=== PATIENT | male | born 1980 | race Caucasian/White ===

== ENCOUNTER 2021-04-25 02:17 | Emergency (ER) | payer SELFPAY ==
[2021-04-25 02:31] VITALS: BP 137/91; PULSE 94
--- NOTE | 2021-04-25 02:40 | EDM.PDOC ---
ED HPI GENERAL MEDICAL PROBLEM - General Chief Complaint: Lower Extremity Injury/Pain Stated Complaint: ANKLE INJURY Time Seen by Provider: 04/25/21 02:33 Source of Information: Reports: Patient, Family History Limitations: Reports: No Limitations - History of Present Illness INITIAL COMMENTS - FREE TEXT/NARRATIVE: 40-year-old male presents to the ED in the wee hours of the morning indicating that he is having constant throbbing pain in his left lower extremity. He states that he was standing on a hover board at about 2000 hrs. last night when his girlfriend called him. When he reached for his phone his left foot inverted and it felt like his mid lateral leg bowled upwards. This did cause him to fall to the ground. Since that time he is having pain in the distribution of the fibula and gastrocnemius muscle both medially and laterally as far down as the origin of the Achilles tendon. Also having pain lateral ankle. Feels that there is a lot of numbness and tingling in the distribution of the common peroneal nerve lateral left leg and foot. Pain is constant throbbing and pulsating and not allowing him to sleep. He denies injuries to any other parts of his body. Onset: Sudden Onset Date: 04/24/21 Onset Time: 20:00 Duration: Hour(s):, Constant, Getting Worse Location: Reports: Lower Extremity, Left (Distribution of the fibula mid lateral leg) Quality: Reports: Ache ( foot and ankle.), Throbbing, Other Severity: Moderate (Pulsating 8 out of 10) Improves with: Reports: Rest Worsens with: Reports: Other (Is with attempt to move. Unable to weight-bear) Context: Reports: Other (Ashly left foot inverted while standing on a hover board). Denies: Activity, Exercise, Lifting, Sick Contact, Trauma Associated Symptoms: Reports: No Other Symptoms Treatments BLOCKER POLISHING: Reports: NSAIDS (Motrin as needed.) Left Leg Pain Score (Numeric/FACES): 9 - Related Data Allergies Allergy/AdvReac Type Severity Reaction Status Date / Time No Known Allergies Allergy Verified 04/25/21 02:31 Past Medical History - Past Health History Medical/Surgical History: Denies Medical/Surgical History - Infectious Disease History Infectious Disease History: Reports: None Social & Family History - Tobacco Use Tobacco Use Status *Q: Current Every Day Tobacco User Years of Tobacco use: 20 Packs/Tins Daily: 1 - Caffeine Use Caffeine Use: Reports: None - Recreational Drug Use Recreational Drug Use: No - Living Situation & Occupation Living situation: Reports: Single Occupation: Unemployed Review of Systems - Review of Systems Review Of Systems: See Below Constitutional: Denies: Chills, Diaphoresis, Fever, Weakness, Other Eyes: Reports: No Symptoms Ears: Reports: No Symptoms Nose: Reports: No Symptoms Mouth/Throat: Reports: No Symptoms Respiratory: Reports: No Symptoms Cardiovascular: Reports: No Symptoms GI/Abdominal: Reports: No Symptoms Genitourinary: Reports: No Symptoms Musculoskeletal: Reports: No Symptoms Skin: Reports: No Symptoms Neurological: Reports: No Symptoms Psychiatric: Reports: No Symptoms ED EXAM, GENERAL - Physical Exam Exam: See Below Exam Limited By: No Limitations General Appearance: Alert, WD/WN, No Apparent Distress, Other (Temperature is 36.2. Heart rate 94 and sinus. Respiratory is 20 with O2 sats of 98% room air. BP 137/91.) Eye Exam: Bilateral Eye: Normal Inspection, PERRL Peripheral Pulses: 3+: Posterior Tibial (L), Posterior Tibial (R), Dorsalis Pedis (L), Dorsalis Pedis (R) Extremities: Limited Range of Motion (Did ability to dorsiflex or plantarflex the ankle. Deltoid ligament is intact. Some tenderness at the insertion of the Achilles tendon appreciated. No evidence of that the Achilles tendon has been disrupted.), Other (Examination of his left lower extremity reveals some tightness within the musculature of the calf particularly laterally I lateral gastrocnemius muscle.) Neurological: Alert, Oriented, CN II-XII Intact, Normal Cognition. No: Normal Gait (Cannot hardly put any weight on the) Psychiatric: Normal Affect, Normal Mood ( left foot.) Skin Exam: Warm, Dry, Intact, Normal Color, No Rash Course - Vital Signs Last Recorded V/S: Last Vital Signs Temp 36.2 C 04/25/21 02:29 Pulse 94 04/25/21 02:29 Resp 20 04/25/21 02:29 BP 137/91 H 04/25/21 02:29 Pulse Ox 98 04/25/21 02:29 - Orders/Labs/Meds Orders: Active Orders 24 hr Category Date Time Status Ankle Min 3V Lt [CR] Stat Exams 04/25/21 02:38 Taken Tibia Fibula Lt [CR] Stat Exams 04/25/21 02:39 Taken Durable Medical Equipment for Discharge [DME for Oth 04/25/21 03:00 Ordered Discharge] [COMM] Stat Meds: Medications Discontinued Medications Generic Name Dose Route Start Last Admin Trade Name Montez PRN Reason Stop Dose Admin Ibuprofen 600 mg 04/25/21 03:00 04/25/21 03:06 Ibuprofen 600 Mg Tab PO 04/25/21 03:01 600 mg ONETIME ONE Administration Oxycodone/Acetaminophen 2 tab 04/25/21 03:00 04/25/21 03:06 Acetaminophen/Oxycodone 325-5 Mg Tab PO 04/25/21 03:01 2 tab ONETIME ONE Administration - Radiology Interpretation Free Text/Narrative:: 40-year-old male attends the D in the wee hours of the morning due to an injury that he sustained at 2000 hrs. last evening while standing on a hover board with his left foot only. He went to reach for his phone in his right pocket and he believes his left foot inverted causing bowing of his left fibula and causing him to fall to the pavement. Since then he has had pain throughout the lateral aspect of his leg with numbness and tingling. Pain is most intense rate in the mid fibula. The medial ligaments of the ankle are intact. There is slight swelling of the lateral ligaments. No pain on firm compression of the metatarsals. Plan x-rays of the left tib-fib and ankle to be done. - Re-Assessments/Exams Free Text/Narrative Re-Assessment/Exam: 04/25/21 03:01 x-rays of the left tib-fib and ankle do not reveal any bony injuries. Patient appears to have strained the lateral gastrocnemius muscle and the lateral ligaments of his left ankle. Audi wraps were applied on the foot and up to the mid foot. Advised to elevate as much as possible. Ice pack to the area 1/2 part of every 4 hours for the next 2 days. He will be nonweightbearing crutch walking. Given a prescription for Percocet tabs 5 325 mg strength 1 or 2 every 4-6 hours necessary for pain relief for the next 3 to 4 days. Continue Motrin 600 mg every 6 hours as well. Expect 7 to 10 days for this injury to heal. Departure - Departure Time of Disposition: 03:02 Disposition: Home, Self-Care 01 Condition: Fair Clinical Impression: Sprain of lateral ligament of ankle joint Strain of gastrocnemius muscle of left lower extremity Qualifiers: Encounter type: initial encounter Qualified Code(s): S86.112A - Strain of other muscle(s) and tendon(s) of posterior muscle group at lower leg level, left leg, initial encounter - Discharge Information *PRESCRIPTION DRUG MONITORING PROGRAM REVIEWED*: No *COPY OF PRESCRIPTION DRUG MONITORING REPORT IN PATIENT MAURILIO: No Instructions: Ankle Sprain, Phase I Rehab-SportsMed Referrals: PCP,None [Primary Care Provider] - Forms: ED Department Discharge Additional Instructions: Evaluation in the emergency room tonight in regards to acute injury to the left lower extremity that occurred while standing on a hover board. History suggest that your ankle inverted causing your lower leg to invert there is tightness or tightness within the gastrocnemius muscle lateral ankle suggesting muscle strain/tear of the lateral gastrocnemius muscle which is why the pain travels down to the insertion site of the origin of the Achilles tendon on the back of your leg. There also has been some strain to the ligaments of the posterior left ankle. X-rays of the left tib-fib and ankle do not reveal any bony injuries. Muscle injury will likely take between 7 and 14 days to heal completely before you are able to climb easily up a ladder or stairs without wincing with pain. Audi wrap on during the day and off at night. Audi ice pack to the area 1/2-hour out of every 4 hours for the next 2 days and after that may apply heat to the area. Suggest use of Motrin 600 mg every 6 hours to reduce pain and inflammation. You were given 2 Percocet tablets through the ED tonight for acute relief of pain. Suggest nonweightbearing crutch walking and elevating your foot is much as possible for the next 2 to 3 days. Sepsis Event Note (ED) - Evaluation Sepsis Screening Result: No Definite Risk - Focused Exam Vital Signs: Vital Signs Temp Pulse Resp BP Pulse Ox 04/25/21 02:29 36.2 C 94 20 137/91 H 98 - My Orders Last 24 Hours: My Active Orders 04/25/21 02:38 Ankle Min 3V Lt [CR] Stat 04/25/21 02:39 Tibia Fibula Lt [CR] Stat 04/25/21 03:00 Durable Medical Equipment for Discharge [DME for Discharge] [COMM] Stat - Assessment/Plan Last 24 Hours: My Active Orders 04/25/21 02:38 Ankle Min 3V Lt [CR] Stat 04/25/21 02:39 Tibia Fibula Lt [CR] Stat 04/25/21 03:00 Durable Medical Equipment for Discharge [DME for Discharge] [COMM] Stat
[2021-04-25] MEDS ORDERED: Acetaminophen/oxyCODONE 325-5 MG Tab PO ONE (03:00)
[2021-04-25] MEDS ORDERED: Ibuprofen 600 MG Tab PO ONE (03:00)
--- NOTE | 2021-04-25 09:01 | CR ---
Left tibia and fibula: AP and lateral views of the left tibia and fibula were obtained. Comparison: No prior study is available. No acute fracture or other bony abnormality is appreciated. Impression: 1. Nothing acute is appreciated on 2 view left tibia and fibula study. Diagnostic code #1
--- NOTE | 2021-04-25 09:02 | CR ---
Left ankle: 3 views of the left ankle were obtained. Comparison: No prior ankle study. Ankle mortise is symmetric. No acute fracture, dislocation or other bony abnormality is appreciated. Impression: 1. Nothing acute is seen on 3 view left ankle exam. Diagnostic code #1
== END 2021-04-25 03:20 | disposition home or self-care (01) ==
LOC: JD.ED 02:17
DX: S93.402A Sprain of unspecified ligament of left ankle, initial encounter (principal); S86.112A Strain of other muscle(s) and tendon(s) of posterior muscle group at lower leg level, left leg, initial encounter; Z72.0 Tobacco use; X50.1XXA Overexertion from prolonged static or awkward postures, initial encounter
CPT/HCPCS: 73590; 73610; 99283; A9270

== ENCOUNTER 2025-06-01 21:08 | Emergency (ER) | payer OTHER ==
[2025-06-01 21:21] VITALS: BP 137/89; PULSE 72
[2025-06-01] MEDS ORDERED: Diphtheria,Pertussis(Acell),Tetanus Vaccine 0.5 ML Syringe IM ONE (23:21)
[2025-06-01] MEDS: Diphtheria/Tetanus Toxoids,Adult (Td) 0.5 ML SDV IM ONE (23:34)
== END 2025-06-01 23:52 | disposition home or self-care (01) ==
LOC: JD.ED 21:08
DX: S62.521B Displaced fracture of distal phalanx of right thumb, initial encounter for open fracture (principal); X58.XXXA Exposure to other specified factors, initial encounter
CPT/HCPCS: 12001; 73140; 90471; 90714; 96372; 99283; J0690